=== PATIENT | male | born 1990 | race Caucasian/White ===

== ENCOUNTER 2024-01-16 08:04 | Emergency (ER) | payer SELFPAY ==
[2024-01-16 08:13] VITALS: TEMP 99.7; BMI 29.8
[2024-01-16] MEDS: SODIUM CHLORIDE 1,000 ML IV STA (09:20)
[2024-01-16 09:36] LABS: BASO % 0.6 % (0-2.0); EOS % 0.8 % (0-4.5); HEMATOCRIT 44.5 % (35.4-49); HEMOGLOBIN 15.4 GM/dL (11.7-16.9); LYMPH % 21.9 % (8-40); MCH 32.1 pg (25.7-33.7); MCHC 34.6 g/dl (32.0-35.9); MEAN CELL VOLUME 92.8 fl (80-96); MEAN PLT VOLUME 7.7 fl (7.5-11.1); MONO % 4.5 % (3.8-10.2); NEUT % 72.2 % (42.8-82.8); PLATELET COUNT 239 10^3/uL (134-434); RBC 4.79 M/mm3 (4.00-5.60); RDW 12.3 % (11.9-15.9); WHITE BLOOD COUNT 8.2 K/mm3 (4.0-10.0)
[2024-01-16 09:42] LABS: COCAINE, UR NEGATIVE (NEGATIVE); URINE BENZODIAZEPINES NEGATIVE (NEGATIVE)
[2024-01-16 09:43] LABS: METHADONE, UR NEGATIVE (NEGATIVE); OPIATES, URI NEGATIVE (NEGATIVE); PHENCYCLIDINE,URINE NEGATIVE (NEGATIVE)
[2024-01-16 09:44] LABS: URINE BARBITURATES NEGATIVE (NEGATIVE)
[2024-01-16 09:46] LABS: URINE AMPHETAMINES NEGATIVE (NEGATIVE)
[2024-01-16 09:54] LABS: POTASSIUM 3.5 mmol/L (3.5-5.1)
[2024-01-16 09:57] LABS: ALBUMIN 3.6 g/dl (3.4-5.0); BLOOD UREA NITROGEN 7.6 mg/dL (7-18)
[2024-01-16 10:00] LABS: CREATININE 0.6 mg/dL (0.55-1.3)
[2024-01-16 10:02] LABS: BILIRUBIN,TOTAL 0.8 mg/dL (0.2-1); TOT PROT 6.9 g/dl (6.4-8.2)
[2024-01-16] MEDS ORDERED: ACETAMINOPHEN INJECTION 100 ML IVPB ONE (10:19)
[2024-01-16] MEDS: ACETAMINOPHEN 1000 MG/100 ML BAG IVPB ONE (10:26)
[2024-01-16 11:13] VITALS: BP 121/85; PULSE 69; RESP 20
== END 2024-01-16 11:26 | disposition home or self-care (01) ==
LOC: JER 08:04
PROC: 3E033NZ Introduction of Analgesics, Hypnotics, Sedatives into Peripheral Vein, Percutaneous Approach (ICD-10-PCS; principal; 2024-01-16)
PROC: 3E0337Z Introduction of Electrolytic and Water Balance Substance into Peripheral Vein, Percutaneous Approach (ICD-10-PCS; 2024-01-16)
DX: R07.89 Other chest pain (principal); R50.9 Fever, unspecified; Z20.822 Contact with and (suspected) exposure to COVID-19
CPT/HCPCS: 0241U-QW; 36415; 71045-TC-FY; 80053; 80307; 83690; 84484; 85025; 93005; 93010; 99285-25; J0131